=== PATIENT | female | born 1940 | race Caucasian/White ===

== ENCOUNTER 2022-05-16 22:39 | Inpatient (IN) | payer MEDICARE ==
[2022-05-17 00:36] VITALS: BMI 28.3
[2022-05-17] MEDS ORDERED: Dextrose 5% in Water 1,000 ML IV PRN (01:44)
[2022-05-17] MEDS ORDERED: Dextrose 50% Abboject 50 ML SYRINGE SLOW IVP PRN (01:44)
[2022-05-17 02:50] LABS: #Lymphocytes 1.6 thou/uL (1.20-3.40); #Monocytes 0.8 thou/uL (0.11-0.59); #Neutrophils 8.7 thou/uL (1.40-6.50); %Basophils 0.2 % (0.0-1.0); %Eosinophils 0.3 % (0.0-10.0); %Lymphocytes 14.3 % (21.0-51.0); %Monocytes 7.3 % (0.0-10.0); %Neutrophils 77.9 % (42.0-75.0); Hemoglobin 14.9 g/dL (12.0-16.0); Mean Corpuscular HGB CONC 34.4 g/dL (32.0-36.0); Mean Corpuscular Hemoglobin 34.3 pg (27.0-31.0); Mean Corpuscular Volume 99.8 fl (78.0-98.0); Mean Platelet Volume 7.3 fL (7.4-10.4); Platelet Count 156 10x3/uL (130-400); RBC Distribution Width 12.2 % (11.5-14.5); Red Blood Cell (RBC) Count 4.36 mill/uL (4.20-5.40); White Blood Cell (WBC) Count 11.2 10x3/uL (4.8-10.8)
[2022-05-17 03:20] LABS: Anion Gap 13 mmol/L (10-20); BUN (Urea Nitrogen) 49 mg/dL (9.8-20.1); CK (CPK) 356 U/L (29-168); Calc. Creatinine Clearance 53 mL/min (70-130); Calcium 8.6 mg/dL (7.8-10.44); Carbon Dioxide 21 mmol/L (23-31); Chloride 112 mmol/L (98-107); Estimated GFR 61; Glucose 132 mg/dL (83-110); Magnesium 2.3 mg/dL (1.6-2.6); Potassium 3.4 mmol/L (3.5-5.1); Sodium 143 mmol/L (136-145)
[2022-05-17] MEDS: Sodium Chloride 0.9% 1,000 ML IV SCH ×4 (05:22→21:06)
[2022-05-17] MEDS ORDERED: FLU VACC QS2022-23(65YR UP)/PF 240 MCG/0.7 ML SYRINGE IM ONE (09:00)
[2022-05-17] MEDS: Heparin 5,000 UNITS/ML VIAL SC SCH ×3 (09:31→21:05)
[2022-05-17] MEDS: Nicotine 7 MG PATCH TD SCH (12:04)
[2022-05-17] MEDS ORDERED: Metoprolol Tartrate 25 MG TAB PO SCH (12:30)
[2022-05-17] MEDS ORDERED: Ipratropium/Albuterol 3 ML NEB NEB SCH (12:30)
[2022-05-17] MEDS ORDERED: Magnesium Sulfate In Water 4 GM in Premix Bag 1 BAG IVPB SCH (13:15)
[2022-05-17] MEDS ORDERED: methylPREDNISolone Sod Succ 40 MG VIAL IVP SCH (13:15)
[2022-05-17] MEDS: Potassium Chloride 20 MEQ in Premix Bag 1 BAG IVPB SCH ×2 (14:04→16:16)
[2022-05-17] MEDS ORDERED: Electrolyte Replacement Protocol FS PRN (16:00)
[2022-05-17] MEDS ORDERED: Lidocaine 2% Viscous Solution 20 ML, Aluminum & Magnesium Hydroxide 30 ML, Donnatal Eli... SSW SCH (16:00)
[2022-05-17] MEDS ORDERED: Electrolyte Replacement Protocol 1 EACH FS SCH (16:00)
[2022-05-17] MEDS: Ipratropium/Albuterol 3 ML NEB NEB SCH (18:38)
[2022-05-17] MEDS: Mometasone 200 MCG/Formoterol 5 MCG 120 PUFF INHALER INH SCH (18:42)
[2022-05-17] MEDS ORDERED: Potassium Chloride 20 MEQ TAB PO SCH (20:30)
[2022-05-17] MEDS: Lisinopril 20 MG TAB PO SCH (21:05)
[2022-05-17] MEDS: Metoprolol Tartrate 25 MG TAB PO SCH (21:05)
[2022-05-17] MEDS: methylPREDNISolone Sod Succ 40 MG VIAL IVP SCH (21:06)
[2022-05-17] MEDS: HumaLOG 300 UNITS/3 ML VIAL SC PRN (23:01)
[2022-05-18 05:05] LABS: #Lymphocytes 0.6 thou/uL (1.20-3.40); #Monocytes 0.2 thou/uL (0.11-0.59); #Neutrophils 5.1 thou/uL (1.40-6.50); %Eosinophils 0.2 % (0.0-10.0); %Lymphocytes 10.5 % (21.0-51.0); %Neutrophils 86.3 % (42.0-75.0); Hemoglobin 13.8 g/dL (12.0-16.0); Mean Corpuscular HGB CONC 34.4 g/dL (32.0-36.0); Mean Corpuscular Hemoglobin 34.5 pg (27.0-31.0); Mean Platelet Volume 7.8 fL (7.4-10.4); Platelet Count 131 10x3/uL (130-400); Red Blood Cell (RBC) Count 3.98 mill/uL (4.20-5.40); White Blood Cell (WBC) Count 5.9 10x3/uL (4.8-10.8)
[2022-05-18] MEDS: Ipratropium/Albuterol 3 ML NEB NEB SCH ×5 (05:15→18:28)
[2022-05-18 05:28] LABS: Anion Gap 10 mmol/L (10-20); BUN (Urea Nitrogen) 19 mg/dL (9.8-20.1); CK (CPK) 798 U/L (29-168); Calc. Creatinine Clearance 72 mL/min (70-130); Carbon Dioxide 22 mmol/L (23-31); Chloride 110 mmol/L (98-107); Estimated GFR 88; Glucose 188 mg/dL (83-110); Potassium 4.4 mmol/L (3.5-5.1); Sodium 138 mmol/L (136-145)
[2022-05-18 05:30] LABS: Troponin I 0.026 ng/mL (< 0.028)
[2022-05-18] MEDS: HumaLOG 300 UNITS/3 ML VIAL SC PRN ×3 (05:31→21:20)
[2022-05-18] MEDS: Heparin 5,000 UNITS/ML VIAL SC SCH ×3 (08:53→21:02)
[2022-05-18] MEDS: Lisinopril 20 MG TAB PO SCH ×2 (08:53→21:04)
[2022-05-18] MEDS: Metoprolol Tartrate 25 MG TAB PO SCH (08:53)
[2022-05-18] MEDS: methylPREDNISolone Sod Succ 40 MG VIAL IVP SCH ×2 (08:53→21:03)
[2022-05-18] MEDS: Montelukast Sodium 10 mg Tablet PO SCH (08:54)
[2022-05-18] MEDS: Mometasone 200 MCG/Formoterol 5 MCG 120 PUFF INHALER INH SCH ×2 (08:58→18:29)
[2022-05-18] MEDS ORDERED: Saccharomyces boulardii 250 MG CAP PO SCH (09:45)
[2022-05-18] MEDS: Nicotine 7 MG PATCH TD SCH (10:20)
[2022-05-18] MEDS: Sodium Chloride 0.9% 1,000 ML IV SCH ×2 (12:39→23:44)
[2022-05-18] MEDS: Labetalol HCl 100 MG/20 ML VIAL SLOW IVP PRN ×2 (13:41→18:07)
[2022-05-18] MEDS: Metoprolol Tartrate 50 MG TAB PO SCH (21:04)
[2022-05-18 23:06] LABS: Campy jejuni + coli by PCR Negative (Negative); STEC Shiga Toxin 1+2 Negative (Negative); Salmonella spp. by PCR Negative (Negative); Shigella spp + EIEC by PCR Negative (Negative)
[2022-05-19 04:59] LABS: #Lymphocytes 0.8 thou/uL (1.20-3.40); #Monocytes 0.3 thou/uL (0.11-0.59); #Neutrophils 7.2 thou/uL (1.40-6.50); %Eosinophils 0.3 % (0.0-10.0); %Lymphocytes 9.4 % (21.0-51.0); %Monocytes 3.7 % (0.0-10.0); %Neutrophils 86.6 % (42.0-75.0); Hemoglobin 13.1 g/dL (12.0-16.0); Mean Corpuscular HGB CONC 33.9 g/dL (32.0-36.0); Mean Corpuscular Hemoglobin 33.8 pg (27.0-31.0); Mean Corpuscular Volume 99.7 fl (78.0-98.0); Mean Platelet Volume 7.3 fL (7.4-10.4); Platelet Count 128 10x3/uL (130-400); RBC Distribution Width 11.8 % (11.5-14.5); Red Blood Cell (RBC) Count 3.89 mill/uL (4.20-5.40); White Blood Cell (WBC) Count 8.4 10x3/uL (4.8-10.8)
[2022-05-19 05:18] LABS: Anion Gap 12 mmol/L (10-20); BUN (Urea Nitrogen) 19 mg/dL (9.8-20.1); CK (CPK) 180 U/L (29-168); Calc. Creatinine Clearance 68 mL/min (70-130); Calcium 8.2 mg/dL (7.8-10.44); Carbon Dioxide 23 mmol/L (23-31); Chloride 106 mmol/L (98-107); Estimated GFR 82; Glucose 200 mg/dL (83-110); Potassium 4.2 mmol/L (3.5-5.1); Sodium 137 mmol/L (136-145)
[2022-05-19] MEDS: HumaLOG 300 UNITS/3 ML VIAL SC PRN ×2 (05:42→18:03)
[2022-05-19] MEDS: Ipratropium/Albuterol 3 ML NEB NEB SCH ×4 (07:06→18:46)
[2022-05-19] MEDS: Mometasone 200 MCG/Formoterol 5 MCG 120 PUFF INHALER INH SCH ×2 (07:06→18:50)
[2022-05-19] MEDS: methylPREDNISolone Sod Succ 40 MG VIAL IVP SCH ×2 (08:49→20:27)
[2022-05-19] MEDS: Saccharomyces boulardii 250 MG CAP PO SCH (08:50)
[2022-05-19] MEDS: Metoprolol Tartrate 50 MG TAB PO SCH ×2 (08:50→20:27)
[2022-05-19] MEDS: Lisinopril 20 MG TAB PO SCH ×2 (08:50→20:27)
[2022-05-19] MEDS: Heparin 5,000 UNITS/ML VIAL SC SCH ×3 (08:50→20:26)
[2022-05-19] MEDS: Montelukast Sodium 10 mg Tablet PO SCH (08:50)
[2022-05-19] MEDS: Nicotine 7 MG PATCH TD SCH (12:01)
[2022-05-20] MEDS: Labetalol HCl 100 MG/20 ML VIAL SLOW IVP PRN ×2 (01:15→11:34)
[2022-05-20] MEDS: Melatonin 3 MG TAB PO PRN ×2 (01:43→20:26)
[2022-05-20] MEDS: Acetaminophen 325 MG TAB PO PRN ×2 (01:43→23:43)
[2022-05-20 05:14] LABS: #Lymphocytes 0.8 thou/uL (1.20-3.40); #Monocytes 0.4 thou/uL (0.11-0.59); #Neutrophils 9.1 thou/uL (1.40-6.50); %Basophils 0.1 % (0.0-1.0); %Eosinophils 0.4 % (0.0-10.0); %Monocytes 3.8 % (0.0-10.0); %Neutrophils 87.6 % (42.0-75.0); Mean Corpuscular HGB CONC 34.3 g/dL (32.0-36.0); Mean Corpuscular Hemoglobin 34.1 pg (27.0-31.0); Mean Corpuscular Volume 99.3 fl (78.0-98.0); Mean Platelet Volume 7.4 fL (7.4-10.4); Platelet Count 132 10x3/uL (130-400); RBC Distribution Width 11.7 % (11.5-14.5); Red Blood Cell (RBC) Count 4.12 mill/uL (4.20-5.40); White Blood Cell (WBC) Count 10.4 10x3/uL (4.8-10.8)
[2022-05-20 05:31] LABS: Anion Gap 11 mmol/L (10-20); BUN (Urea Nitrogen) 21 mg/dL (9.8-20.1); Calc. Creatinine Clearance 68 mL/min (70-130); Calcium 8.4 mg/dL (7.8-10.44); Carbon Dioxide 26 mmol/L (23-31); Chloride 101 mmol/L (98-107); Estimated GFR 82; Glucose 230 mg/dL (83-110); Potassium 4.1 mmol/L (3.5-5.1); Sodium 134 mmol/L (136-145)
[2022-05-20] MEDS: Mometasone 200 MCG/Formoterol 5 MCG 120 PUFF INHALER INH SCH ×2 (06:41→18:40)
[2022-05-20] MEDS: Ipratropium/Albuterol 3 ML NEB NEB SCH ×4 (06:47→18:30)
[2022-05-20] MEDS: methylPREDNISolone Sod Succ 40 MG VIAL IVP SCH (08:45)
[2022-05-20] MEDS: Metoprolol Tartrate 50 MG TAB PO SCH ×2 (08:46→20:25)
[2022-05-20] MEDS: Lisinopril 20 MG TAB PO SCH ×2 (08:46→20:25)
[2022-05-20] MEDS: Montelukast Sodium 10 mg Tablet PO SCH (08:46)
[2022-05-20] MEDS: Saccharomyces boulardii 250 MG CAP PO SCH (08:46)
[2022-05-20] MEDS: Heparin 5,000 UNITS/ML VIAL SC SCH ×3 (08:47→20:26)
[2022-05-20] MEDS: Nicotine 7 MG PATCH TD SCH (10:33)
[2022-05-20] MEDS: HumaLOG 300 UNITS/3 ML VIAL SC PRN ×2 (11:34→17:35)
[2022-05-21] MEDS: Mometasone 200 MCG/Formoterol 5 MCG 120 PUFF INHALER INH SCH ×2 (07:48→19:05)
[2022-05-21] MEDS: Ipratropium/Albuterol 3 ML NEB NEB SCH ×4 (07:52→18:55)
[2022-05-21] MEDS: Metoprolol Tartrate 50 MG TAB PO SCH ×2 (09:09→20:36)
[2022-05-21] MEDS: Lisinopril 20 MG TAB PO SCH ×2 (09:09→20:36)
[2022-05-21] MEDS: Heparin 5,000 UNITS/ML VIAL SC SCH ×3 (09:09→20:35)
[2022-05-21] MEDS: predniSONE 5 MG TAB PO SCH (09:09)
[2022-05-21] MEDS: Montelukast Sodium 10 mg Tablet PO SCH (09:09)
[2022-05-21] MEDS: Saccharomyces boulardii 250 MG CAP PO SCH (09:09)
[2022-05-21] MEDS: Nicotine 7 MG PATCH TD SCH ×2 (11:23→11:25)
[2022-05-21 15:57] LABS: EliA Celiac New Method **** NEW METHOD ****; t-Transglutaminase (tTG) IgA Less than 0.2 EliAU/mL (<7 Negative)
[2022-05-21] MEDS: HumaLOG 300 UNITS/3 ML VIAL SC PRN (18:14)
[2022-05-22] MEDS ORDERED: Furosemide 40 MG/4 ML VIAL SLOW IVP SCH (07:00)
[2022-05-22] MEDS: Mometasone 200 MCG/Formoterol 5 MCG 120 PUFF INHALER INH SCH ×2 (07:26→19:16)
[2022-05-22 07:29] LABS: #Eosinphils 0.2 thou/uL (0.0-0.7); #Lymphocytes 2.3 thou/uL (1.20-3.40); #Monocytes 0.8 thou/uL (0.11-0.59); #Neutrophils 7.4 thou/uL (1.40-6.50); %Basophils 0.3 % (0.0-1.0); %Eosinophils 1.6 % (0.0-10.0); %Lymphocytes 21.3 % (21.0-51.0); %Monocytes 7.7 % (0.0-10.0); %Neutrophils 69.1 % (42.0-75.0); Hemoglobin 15.3 g/dL (12.0-16.0); Mean Corpuscular HGB CONC 33.5 g/dL (32.0-36.0); Mean Corpuscular Hemoglobin 33.6 pg (27.0-31.0); Mean Platelet Volume 7.2 fL (7.4-10.4); Platelet Count 153 10x3/uL (130-400); RBC Distribution Width 11.9 % (11.5-14.5); Red Blood Cell (RBC) Count 4.56 mill/uL (4.20-5.40); White Blood Cell (WBC) Count 10.7 10x3/uL (4.8-10.8)
[2022-05-22] MEDS: Ipratropium/Albuterol 3 ML NEB NEB SCH ×4 (07:29→19:06)
[2022-05-22 07:58] LABS: Anion Gap 15 mmol/L (10-20); BUN (Urea Nitrogen) 22 mg/dL (9.8-20.1); Calc. Creatinine Clearance 74 mL/min (70-130); Calcium 8.5 mg/dL (7.8-10.44); Carbon Dioxide 26 mmol/L (23-31); Chloride 101 mmol/L (98-107); Estimated GFR 89; Glucose 110 mg/dL (83-110); Potassium 3.6 mmol/L (3.5-5.1); Sodium 138 mmol/L (136-145)
[2022-05-22] MEDS: Metoprolol Tartrate 50 MG TAB PO SCH ×2 (08:18→20:31)
[2022-05-22] MEDS: Montelukast Sodium 10 mg Tablet PO SCH (08:18)
[2022-05-22] MEDS: predniSONE 5 MG TAB PO SCH (08:19)
[2022-05-22] MEDS: Saccharomyces boulardii 250 MG CAP PO SCH (08:19)
[2022-05-22] MEDS: Acetaminophen 325 MG TAB PO PRN (08:20)
[2022-05-22] MEDS: Lisinopril 20 MG TAB PO SCH ×2 (08:21→20:31)
[2022-05-22] MEDS: Heparin 5,000 UNITS/ML VIAL SC SCH ×3 (08:22→20:31)
[2022-05-22] MEDS: HumaLOG 300 UNITS/3 ML VIAL SC PRN ×2 (11:19→17:42)
[2022-05-22] MEDS: Nicotine 7 MG PATCH TD SCH (11:20)
[2022-05-23] MEDS: HumaLOG 300 UNITS/3 ML VIAL SC PRN (06:12)
[2022-05-23] MEDS: Acetaminophen 325 MG TAB PO PRN (06:14)
[2022-05-23] MEDS: Ipratropium/Albuterol 3 ML NEB NEB SCH ×3 (07:39→17:18)
[2022-05-23] MEDS: Mometasone 200 MCG/Formoterol 5 MCG 120 PUFF INHALER INH SCH (07:39)
[2022-05-23] MEDS: predniSONE 5 MG TAB PO SCH (09:31)
[2022-05-23] MEDS: Lisinopril 20 MG TAB PO SCH (09:31)
[2022-05-23] MEDS: Saccharomyces boulardii 250 MG CAP PO SCH (09:31)
[2022-05-23] MEDS: Montelukast Sodium 10 mg Tablet PO SCH (09:31)
[2022-05-23] MEDS: Metoprolol Tartrate 50 MG TAB PO SCH (09:31)
[2022-05-23] MEDS: Heparin 5,000 UNITS/ML VIAL SC SCH ×2 (09:34→15:35)
[2022-05-23] MEDS: Nicotine 7 MG PATCH TD SCH (11:24)
[2022-05-23 16:00] VITALS: BP 129/64; TEMP 97.4
== END 2022-05-23 17:16 | DRG 564 ==
LOC: 2NO 22:39 → OBSVTOIN 05-17 01:45
PROVIDERS: ADMIT Internal Medicine; ATTEND Internal Medicine
DX: T79.6XXA Traumatic ischemia of muscle, initial encounter (principal); I21.A1 Myocardial infarction type 2; N17.9 Acute kidney failure, unspecified; J43.9 Emphysema, unspecified; Z20.822 Contact with and (suspected) exposure to COVID-19; R29.6 Repeated falls; E86.0 Dehydration; W18.39XA Other fall on same level, initial encounter; K52.9 Noninfective gastroenteritis and colitis, unspecified; K21.9 Gastro-esophageal reflux disease without esophagitis; E86.9 Volume depletion, unspecified; R40.4 Transient alteration of awareness; I10 Essential (primary) hypertension; Z91.81 History of falling; Z79.899 Other long term (current) drug therapy; Z28.21 Immunization not carried out because of patient refusal; Z91.012 Allergy to eggs; Z91.011 Allergy to milk products; Z88.5 Allergy status to narcotic agent; Z88.2 Allergy status to sulfonamides; Z91.018 Allergy to other foods; Z79.51 Long term (current) use of inhaled steroids; Z90.710 Acquired absence of both cervix and uterus; Z90.49 Acquired absence of other specified parts of digestive tract; Z79.4 Long term (current) use of insulin; Y92.002 Bathroom of unspecified non-institutional (private) residence as the place of occurrence of the external cause
CPT/HCPCS: 36415; 36416; 71045; 80048; 82550; 83516; 83630; 83735; 83880; 84100; 84145; 84484; 85025; 87040; 87324; 87449; 87505; 94640; 94664; J1644; J1815; J1940; J2920; J3475; J3480; J7050; J7512; J7620; U0003; U0005